=== PATIENT | female | born 1950 | race African-American/Black ===

== ENCOUNTER 2018-01-13 14:38 | Emergency (ER) | payer BC, MEDICAID, MEDICARE ==
[~2018-01-13] VITALS: Ht 170.2 cm; Wt 68.0 kg
[2018-01-13 15:25] VITALS: BP 134/77
== END 2018-01-13 16:17 | disposition home or self-care (01) ==
LOC: ER 14:46
DX: L30.9 Dermatitis, unspecified (principal); J45.909 Unspecified asthma, uncomplicated; Z72.0 Tobacco use
CPT/HCPCS: 99283; 99406; A4606; Z7610